=== PATIENT | male | born 1975 | race Caucasian/White ===

== ENCOUNTER 2022-01-19 06:36 | Day surgery (SDC) | payer OTHER ==
[~2022-01-19 06:36] MED LIST: Lactated Ringers 1,000 ML IV SCH
[2022-01-19] MEDS ORDERED: Lidocaine 2% 5 ML SDV ONE (07:52)
[2022-01-19] MEDS ORDERED: Propofol 200 MG/20 ML SDV ONE ×2 (07:52→08:22)
== END 2022-01-19 09:25 | disposition home or self-care (01) ==
LOC: MW.SDS 06:36
PROVIDERS: ATTEND Surgery
DX: Z12.11 Encounter for screening for malignant neoplasm of colon (principal); K31.A0 Gastric intestinal metaplasia, unspecified; K31.7 Polyp of stomach and duodenum; K44.9 Diaphragmatic hernia without obstruction or gangrene; K57.30 Diverticulosis of large intestine without perforation or abscess without bleeding; K21.9 Gastro-esophageal reflux disease without esophagitis; J30.9 Allergic rhinitis, unspecified; Z91.030 Bee allergy status; Z79.899 Other long term (current) drug therapy; Z98.890 Other specified postprocedural states
CPT/HCPCS: 43239; 45378; J2704; J7120; 00813

== ENCOUNTER 2024-05-22 15:50 | Emergency (ER) | payer BC ==
[2024-05-22 19:07] LABS: BASOPHILS ABSOLUTE AUTO 0.05 K/uL (0.00-0.20); BASOPHILS PERCENT AUTO 0.9 % (0.0-1.0); EOSINOPHILS ABSOLUTE AUTO 0.05 K/uL (0.00-0.45); EOSINOPHILS PERCENT AUTO 0.9 % (0.0-6.0); HEMATOCRIT 49.4 % (42.0-52.0); HEMOGLOBIN 16.1 g/dL (14.0-18.0); IMMATURE GRAN ABSOLUTE AUTO 0.02 K/uL (0.00-0.05); IMMATURE GRAN PERCENT AUTO 0.4 % (0.0-0.4); LYMPHOCYTES ABSOLUTE AUTO 2.68 K/uL (1.00-4.80); LYMPHOCYTES PERCENT AUTO 48.6 % (24.0-44.0); MEAN CORPUSCULAR HEMOGLOBIN 28.7 pg (28.0-32.0); MEAN CORPUSCULAR HGB CONC 32.6 g/dL (32.0-36.0); MEAN CORPUSCULAR VOLUME 88.1 fL (83.0-99.0); MEAN PLATELET VOLUME 11.2 fL (9.4-12.4); MONOCYTES ABSOLUTE AUTO 0.39 K/uL (0.00-0.80); MONOCYTES PERCENT AUTO 7.1 % (0.0-8.0); NEUTROPHILS ABSOLUTE AUTO 2.33 K/uL (1.80-7.70); NEUTROPHILS PERCENT AUTO 42.1 % (41.0-71.0); PLATELET COUNT,PLT 102 K/uL (150-400); RED BLOOD CELL COUNT 5.61 M/uL (4.52-5.90); WHITE BLOOD CELL COUNT,WBC 5.52 K/uL (3.9-11.3)
[2024-05-22] MEDS: Iopamidol 755 MG/ML 500 ML Multipack Bottle IVPUSH ONE (19:31)
[2024-05-22 19:35] LABS: A/G RATIO 1.1 (0.9-1.6); ALBUMIN 4.1 g/dL (3.4-5.0); BILIRUBIN TOTAL 1.3 mg/dL (0.2-1.0); CALCIUM 9.3 mg/dL (8.5-10.1); CARBON DIOXIDE,CO2 26.7 mmol/L (21.0-32.0); CREATININE 1.3 mg/dL (0.8-1.3); EST CRCL DRUG DOSING (CG) 75.44 mL/min; MAGNESIUM 2.3 mg/dL (1.8-2.4); POTASSIUM,K 4.8 mmol/L (3.5-5.1)
[2024-05-22] MEDS: Sodium Chloride 0.9% 1,000 ML IV ONE (19:54)
== END 2024-05-22 21:21 | disposition home or self-care (01) ==
LOC: MW.ED 15:50
DX: G43.909 Migraine, unspecified, not intractable, without status migrainosus (principal); K21.9 Gastro-esophageal reflux disease without esophagitis; Z90.49 Acquired absence of other specified parts of digestive tract; Z79.899 Other long term (current) drug therapy; Z91.030 Bee allergy status; Z75.8 Other problems related to medical facilities and other health care
CPT/HCPCS: 36415; 70450; 70496; 70498; 80053; 83735; 84484; 85025; 96360; 99284; J7030; Q9967

== ENCOUNTER 2025-01-01 09:43 | Day surgery (SDC) | payer BC ==
[~2025-01-01 09:43] MED LIST changes: +Albuterol 0.083% 2.5 MG/3 ML Neb Soln NEB PRN; -Lactated Ringers 1,000 ML IV SCH; +Naloxone 0.4 MG/ML SDV IVPUSH PRN; +Ondansetron 4 MG/2 ML SDV IVPUSH PRN; +ceFAZolin 2 GM in Water For Injection, Sterile 20 ML IVPUSH ONE; +fentaNYL 50 MCG/ML SDV IVPUSH PRN; +propofoL 500 MG/50 ML 50 ML ONE
[2025-01-01] MEDS ORDERED: dexmedeTOMIDine HCl 200 MCG/2 ML SDV ONE (10:53)
[2025-01-01] MEDS: Scopalamine 1mg/3day Transdermal Patch TRDERM PRN (10:56)
[2025-01-01] MEDS ORDERED: Ropivacaine 0.5% 5 MG/ML 30 ML SDV ONE (10:56)
[2025-01-01] MEDS: Lactated Ringers 1,000 ML IV SCH (11:10)
[2025-01-01] MEDS ORDERED: Lidocaine 1% with EPINEPHrine 1:100,000 10 ML MDV ONE (11:16)
[2025-01-01] MEDS ORDERED: Midazolam 1 MG/ML 2 ML SDV ONE (11:49)
[2025-01-01] MEDS ORDERED: Propofol 200 MG/20 ML SDV ONE ×2 (11:50→12:18)
[2025-01-01] MEDS ORDERED: propofoL 500 MG/50 ML 50 ML ONE ×2 (11:50→12:15)
[2025-01-01] MEDS ORDERED: fentaNYL 100 MCG/2 ML SDV ONE ×2 (11:50→12:15)
[2025-01-01] MEDS ORDERED: Ondansetron 4 MG/2 ML SDV ONE ×2 (12:11→12:35)
[2025-01-01] MEDS ORDERED: Dexamethasone 4 MG/ML 5 ML MDV ONE (12:11)
[2025-01-01] MEDS ORDERED: Ketorolac 30 MG/ML SDV ONE (12:35)
== END 2025-01-01 16:00 | disposition home or self-care (01) ==
LOC: MW.SDS 09:43
PROVIDERS: ATTEND Surgery
DX: D17.1 Benign lipomatous neoplasm of skin and subcutaneous tissue of trunk (principal); D17.21 Benign lipomatous neoplasm of skin and subcutaneous tissue of right arm; K42.9 Umbilical hernia without obstruction or gangrene; K21.9 Gastro-esophageal reflux disease without esophagitis; Z79.899 Other long term (current) drug therapy
CPT/HCPCS: 21555; 24075; 49591; A9270; C1781; J0665; J0690; J1100; J1885; J2003; J2004; J2250; J2405; J2704; J2795; J3010; J7120; 00830; 64488; J3490